=== PATIENT | male | born 1940 | race Caucasian/White ===

== ENCOUNTER 2017-06-07 13:25 | Inpatient (IN) | payer OTHER ==
[~2017-06-07] VITALS: Ht 170.2 cm; Wt 77.1 kg
[2017-06-07 13:50] VITALS: BP 168/92
[2017-06-07 14:59] LABS: ABSOLUTE NEUTROPHILS 5.3 thou/uL (1.4-8.2); BASOPHILS 0.6 % (0.0-2.0); EOSINOPHILS 0.6 % (0.0-3.0); HEMATOCRIT 41.1 % (42.0-52.0); HEMOGLOBIN 13.7 gm/dL (14.0-18.0); LYMPHOCYTES 18.9 % (24.0-44.0); MCH 29.9 pg (26.0-34.0); MCHC 33.2 g/dL (28.0-37.0); MCV 89.8 fL (80.0-100.0); MONOCYTES 4.5 % (1.0-8.0); PLATELET COUNT 165 thou/uL (150-400); POLYS 75.4 % (36.0-66.0); RBC 4.58 mil/uL (4.50-6.00); RDW 13.8 % (10.5-14.5)
[2017-06-07 15:07] LABS: CALCIUM 9.1 mg/dL (8.5-10.1); CREATININE 0.8 mg/dL (0.7-1.3); POTASSIUM 3.8 mmol/L (3.5-5.1)
[2017-06-07 15:13] LABS: ALBUMIN 3.7 g/dL (3.4-5.0); TOTAL BILIRUBIN 0.3 mg/dL (<0.1-1.0); TOTAL PROTEIN 6.7 g/dL (6.4-8.2)
[2017-06-07 16:17] LABS: URINE BILIRUBIN NEGATIVE (Negative); URINE BLOOD NEGATIVE (Negative); URINE CLARITY CLEAR; URINE COLOR YELLOW; URINE GLUCOSE-RANDOM* NEGATIVE (Negative); URINE KETONES NEGATIVE (Negative); URINE LEUKOCYTES NEGATIVE (Negative); URINE NITRITE NEGATIVE (Negative); URINE PROTEIN (DIPSTICK) NEGATIVE (Negative); URINE SPECIFIC GRAVITY 1.015 (1.005-1.035); URINE UROBILINOGEN 0.2 E.U./dl (0.2-1.0)
[2017-06-07 16:22] VITALS: BP 168/92
[2017-06-07 18:23] VITALS: BP 136/68
[2017-06-07 19:18] VITALS: BP 149/76
[2017-06-07] MEDS ORDERED: NORVASC10 MG PO (22:34)
[2017-06-07] MEDS ORDERED: LIPITOR 20 MG T20 M1 PO (22:34)
[2017-06-07] MEDS ORDERED: BENAZEPRIL HCL40 MG PO (22:35)
[2017-06-07] MEDS ORDERED: COQ-10100 MG PO (22:35)
[2017-06-07] MEDS ORDERED: MELATONIN5 M1 PO (22:36)
[2017-06-07] MEDS ORDERED: METHADONE HCL5 MG PO (22:38)
[2017-06-07] MEDS ORDERED: RITALIN5 MG PO (22:39)
[2017-06-07] MEDS ORDERED: MULTIVIT-FLUORID1 M1 PO (22:51)
[2017-06-07] MEDS ORDERED: MIRAPEX1.5 MG PO (22:52)
[2017-06-07] MEDS ORDERED: OMEPRAZOLE 20 M20 MG PO (22:52)
[2017-06-07] MEDS ORDERED: FIBER THERAPY454 GM PO (22:57)
[2017-06-08] VITALS: BP 130/68
[2017-06-08 04:00] VITALS: BP 132/76
[2017-06-08 07:34] VITALS: BP 117/79
[2017-06-08 17:08] VITALS: BP 133/70
[2017-06-08 19:31] VITALS: BP 142/49
[2017-06-09 08:17] VITALS: BP 131/62
[2017-06-09 20:00] VITALS: BP 132/50
[2017-06-10 04:00] VITALS: BP 144/67
[2017-06-10 08:00] VITALS: BP 152/77
[2017-06-10] MEDS ORDERED: LYRICA 75 MG CA75 MG PO (10:28)
[2017-06-10] MEDS ORDERED: HYDROCODON-ACE1 EAC7 PO (10:28)
[2017-06-10 10:52] VITALS: BP 152/77
== END 2017-06-10 14:06 | disposition home or self-care (01) | DRG 74 ==
LOC: ER 13:25 → EROBS 14:57 → 4N 14:57
PROVIDERS: Nurse Practitioner Family
DX: M54.10 Radiculopathy, site unspecified (principal); S32.009A Unspecified fracture of unspecified lumbar vertebra, initial encounter for closed fracture; K59.00 Constipation, unspecified; G89.29 Other chronic pain; I10 Essential (primary) hypertension; G25.81 Restless legs syndrome; M54.9 Dorsalgia, unspecified; Z88.1 Allergy status to other antibiotic agents; Z95.2 Presence of prosthetic heart valve; Z88.0 Allergy status to penicillin; Z79.899 Other long term (current) drug therapy; Z23 Encounter for immunization; Z60.2 Problems related to living alone; W18.39XA Other fall on same level, initial encounter; Y93.89 Activity, other specified; Y92.89 Other specified places as the place of occurrence of the external cause; Y99.8 Other external cause status
CPT/HCPCS: 10091

== ENCOUNTER 2017-06-22 15:33 | Emergency (ER) | payer OTHER ==
[~2017-06-22] VITALS: Ht 170.2 cm; Wt 78.9 kg
--- NOTE | ~2017-06-22 | EKG ---
[place] [address] [facility] [employer] [place] [address] ELECTROCARDIOGRAM REPORT Name: MARGAUX GALLEGOS Room #: ASHLY Gupta#: [id number] Admission: 06/22/17 Attend Phys: Discharge: 06/22/17 Date of : 40 Report #: [id number] THIS REPORT FOR: //name// [facility] ED Test Date: 2017-06-22 Test Time: 16:29:53 Pat Name: MARGAUX GALLEGOS Department: Room: Gender: Silk Finisher: DANN : 1940 Requested By: Kole Disla Order Number: [id number] MD: Riky Morataya Measurements Intervals [place] Rate: 59 P: 3 CO: 197 QRS: -22 QRSD: 84 T: 48 QT: 353 QTc: 350 Interpretive Statements Sinus rhythm Borderline left axis deviation Borderline T wave abnormalities No previous ECG available for comparison Electronically Signed On 06-23-2017 12:22:38 [employer] by Riky Morataya [email or web address] <ELECTRONICALLY SIGNED> By: Riky Morataya MD 06/23/17 1222 1629 1629 Riky Morataya MD /EPI
[~2017-06-22 15:33] MED LIST: BENAZEPRIL HCL40 MG PO; COQ-10100 MG PO; FIBER THERAPY454 GM PO; HYDROCODON-ACE1 EAC7 PO; LIPITOR 20 MG T20 M1 PO; LYRICA 75 MG CA75 MG PO; MELATONIN5 M1 PO; METHADONE HCL5 MG PO; MIRAPEX1.5 MG PO; MULTIVIT-FLUORID1 M1 PO; NORVASC10 MG PO; OMEPRAZOLE 20 M20 MG PO; RITALIN5 MG PO
[2017-06-22 16:30] LABS: HEMATOCRIT 37.6 % (42.0-52.0); HEMOGLOBIN 12.4 gm/dL (14.0-18.0); MCH 29.6 pg (26.0-34.0); MCV 89.6 fL (80.0-100.0); RBC 4.2 mil/uL (4.50-6.00); RDW 14.2 % (10.5-14.5); WBC 5.3 thou/uL (4.0-11.0)
[2017-06-22 16:39] LABS: CALCIUM 8.5 mg/dL (8.5-10.1); CREATININE 0.9 mg/dL (0.7-1.3); POTASSIUM 3.7 mmol/L (3.5-5.1)
[2017-06-22 16:45] LABS: ALBUMIN 3.2 g/dL (3.4-5.0); TOTAL BILIRUBIN 0.3 mg/dL (<0.1-1.0); TOTAL PROTEIN 6.1 g/dL (6.4-8.2)
[2017-06-22] MEDS ORDERED: OSELB75 PO (17:23)
[2017-06-22 18:03] VITALS: BP 119/68
== END 2017-06-22 18:06 | disposition home or self-care (01) ==
LOC: ER 15:33
PROVIDERS: Emergency Medicine
DX: J09.X2 Influenza due to identified novel influenza A virus with other respiratory manifestations (principal); G89.29 Other chronic pain; M54.9 Dorsalgia, unspecified; Z88.0 Allergy status to penicillin; Z88.1 Allergy status to other antibiotic agents